=== PATIENT | male | born 1995 | race Hispanic/Latino ===

== ENCOUNTER 2019-02-25 01:38 | Inpatient (IN) | payer OTHER ==
[2019-02-25] VITALS (10 sets, daily range): BP systolic 107–124; BP diastolic 63–87
[~2019-02-25] VITALS: Ht 182.9 cm; Wt 111.1 kg
[2019-02-25] MEDS ORDERED: ONDANSETRON HCL INJ 2MG/ML 2ML 2 MG/ML VIAL IV STA (02:02)
[2019-02-25] MEDS ORDERED: SODIUM CHLORIDE 0.9% 1000ML 1,000 ML IV ONE (02:15)
[2019-02-25 02:32] LABS: BASOPHILS # (AUTO) 0.2 (0.0-0.1); EOSINOPHILS # (AUTO) 0.2 (0.0-0.4); EOSINOPHILS % 1.2 % (0.0-6.0); HEMOGLOBIN 12.1 g/dL (14.0-18.0); LYMPHOCYTES # (AUTO) 4.6 (1.0-3.2); LYMPHOCYTES % 24.5 % (18.0-39.1); MEAN CORPUSCULAR HEMOGLOBIN 29.2 pg (28-32); MEAN CORPUSCULAR HGB CONC 33.6 g/dL (31-35); MONOCYTES # (AUTO) 1.1 (0.2-0.8); MONOCYTES % 5.6 % (4.4-11.3); NEUTROPHILS # (AUTO) 12.5 (2.1-6.9); NEUTROPHILS % 66.5 % (38.7-80.0); PLATELET COUNT 281 x10e3/uL (140-360); RED BLOOD COUNT 4.14 x10e6/uL (4.3-5.7); RED CELL DISTRIBUTION WIDTH 12.5 % (11.7-14.4)
[2019-02-25 02:36] LABS: INR 0.97; PROTHROMBIN TIME 13.4 seconds (11.9-14.5)
[2019-02-25 02:37] LABS: PARTIAL THROMBOPLASTIN TIME 25.5 seconds (23.8-35.5)
[2019-02-25 02:44] LABS: ALANINE AMINOTRANSFERASE 42 IU/L (0-55); ALKALINE PHOSPHATASE 74 IU/L (40-150); ANION GAP 14.3 mmol/L (8-16); BLOOD UREA NITROGEN 38 mg/dL (7-26); BUN/CREATININE RATIO 41 (6-25); CALCIUM 9.1 mg/dL (8.4-10.2); CARBON DIOXIDE 26 mmol/L (22-29); CHLORIDE 102 mmol/L (98-107); CREATININE, SERUM 0.93 mg/dL (0.72-1.25); EST GLOMERULAR FILTRATION RATE > 60 ML/MIN (60-); GLUCOSE 154 mg/dL (74-118); POTASSIUM 4.3 mmol/L (3.5-5.1); SODIUM 138 mmol/L (136-145)
[2019-02-25 02:53] LABS: ALBUMIN 3.9 g/dL (3.5-5.0); ALBUMIN/GLOBULIN RATIO 1.5 (0.8-2.0)
[2019-02-25] MEDS ORDERED: PANTOPRAZOLE 40 MG 10ML VIAL IV STA (02:58)
--- NOTE | 2019-02-25 03:05 | Diagnostic Imaging Report ---
EXAMINATION: CHEST 2 VIEWS INDICATION: ^ABD PAIN ^[id number] ^0235 ^Y COMPARISON: None FINDINGS: PA and lateral views TUBES and LINES: None. LUNGS: Lungs are well inflated. Lungs are clear. There is no evidence of pneumonia or pulmonary edema. PLEURA: No pleural effusion or pneumothorax. HEART AND MEDIASTINUM: The cardiomediastinal silhouette is unremarkable. BONES AND SOFT TISSUES: No acute osseous lesion. Soft tissues are unremarkable. UPPER ABDOMEN: No free air under the diaphragm. IMPRESSION: No acute thoracic abnormality. Signed by: Dr. Smita Flores M.D. on 02/25/2019 3:02 AM
[2019-02-25] MEDS ORDERED: OCTREOTIDE ACETATE 0.05 MG/ML AMP IV STA (03:07)
[2019-02-25] MEDS ORDERED: SODIUM CHLORIDE 0.9% 250ML 250 ML ONE (03:15)
[2019-02-25] MEDS ORDERED: PANTOPRAZOL 40MG/SOD CHL 0.9% 50 ML IV ONE (03:15)
[2019-02-25] MEDS ORDERED: PANTOPRAZOLE INJ 80 MG in SODIUM CHLORIDE 0.9% 100 ML IV SCH (03:15)
[2019-02-25] MEDS ORDERED: OCTREOTIDE ACETATE 1 ML ONE (03:16)
--- OUTSIDE RECORDS SUMMARY | 2019-02-25 03:19 | XMS REPORT ---
Author Author [facility] Address Unknown Phone Unavailable Care Team Providers Care Leak Gang Supervisor Name Role Phone Mile ALFONSO Unavailable Unavailable Problems This patient has no known problems. Allergies, Adverse Reactions, Alerts This patient has no known allergies or adverse reactions. Medications This patient has no known medications. Results Test Description Test Time Test Comments Text Results Atomic Results Result Comments CHEST 2 VIEWS 2019-02-25 03:01:00 [place] [address] Patient Name: BRANDON LOMELI MR #: [id number] : 1995 Age/Sex: 23/M Req #: [id number] Adm Physician: Ordered by: HEVER ALFONSO MD Report #: [id number] Location: ER Room/Bed: Procedure: [id number] DX/CHEST 2 VIEWS Exam Date: 02/25/19 Exam Time: 0235 REPORT STATUS: Signed EXAMINATION: CHEST 2 VIEWS INDICATION: ABD PAIN [id number] Y COMPARISON: None FINDINGS: PA and lateral views TUBES and LINES: None. LUNGS: Lungs are well inflated. Lungs are clear. There is no evidence of pneumonia or pulmonary edema. PLEURA: No pleural effusion or pneumothorax. HEART AND MEDIASTINUM: The cardiomediastinal silhouette is unremarkable. BONES AND SOFT TISSUES: No acute osseous lesion. Soft tissues are unremarkable. UPPER ABDOMEN: No free air under the diaphragm. IMPRESSION: No acute thoracic abnormality. Signed by: Dr. Evy Flores M.D. on 02/25/2019 3:02 AM Dictated By: EVY FLORES MD 1 Transcribed By: DAVID on 02/25/19301 COPY TO: HEVER ALFONSO MD
[2019-02-25] MEDS ORDERED: OCTREOTIDE ACETATE 0.05 MG/ML AMP ONE (03:20)
[2019-02-25] MEDS ORDERED: PROMETHAZINE 12.5MG/ NACL 0.9% 50 ML ONE (03:25)
[2019-02-25] MEDS: PROMETHAZINE 12.5MG/ NACL 0.9% 12.5 MG/50 ML BAG IV PRN (03:28)
[2019-02-25] MEDS ORDERED: NO HOME MEDS (03:29)
[2019-02-25] MEDS: OCTREOTIDE ACETATE 500 MCG in SODIUM CHLORIDE 0.9% 250ML 250 ML IV SCH ×2 (03:30→13:46)
[2019-02-25] MEDS ORDERED: PANTOPRAZOLE 40 MG 10ML VIAL ONE (05:42)
[2019-02-25] MEDS ORDERED: SODIUM CHLORIDE 0.9% 50ML 50 ML ONE (05:47)
[2019-02-25] MEDS ORDERED: ALPRAZOLAM 0.5 MG TAB PO NR (09:30)
[2019-02-25] MEDS: PANTOPRAZOL 40MG/SOD CHL 0.9% 50 ML IV SCH ×3 (09:52→20:17)
[2019-02-25] MEDS: SODIUM CHLORIDE 0.9% 1000ML 1,000 ML IV SCH ×2 (11:10→20:17)
[2019-02-25 12:20] LABS: HEMATOCRIT 31.2 % (38.2-49.6); HEMOGLOBIN 10.8 g/dL (14.0-18.0)
--- NOTE | 2019-02-25 14:38 | History and Physical ---
CHIEF COMPLAINT: Hematemesis. Melena. Epigastric pain. HISTORY OF PRESENT ILLNESS: A 23-year-old male. For the past couple of weeks or so, the patient was having severe lower back pain. 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 The patient did take alternate of Advil and ibuprofen [id number] and apparently last night, the patient had a gross hematemesis with also melena for the past few days as well. His hemoglobin and hematocrit dropped down to 12.1 and 36. White cell count is 18.8, most likely leukemoid reaction. The patient is otherwise stable at this time. He is on octreotide and PPI drip. The patient is stable. PAST MEDICAL HISTORY: Recent back injury. SOCIAL HISTORY: The patient does not smoke or use alcohol. No recreational drugs. ALLERGIES: NO KNOWN ALLERGIES. HOME MEDICATIONS: [id number]-opkbkwk Tylenol. Ibuprofen, naproxen PHYSICAL EXAMINATION: VITAL SIGNS: Temperature is 97, blood pressure 107/63, pulse rate 93, respirations 20. GENERAL: The patient is not in acute distress. He is awake. HEENT: Normocephalic, atraumatic. Anicteric. NECK: Supple grossly. PULMONARY: Diminished breath sounds bilaterally. CARDIOVASCULAR: S1, S2. Regular rate and rhythm. ABDOMEN: Epigastric discomfort. No rebound or guarding. EXTREMITIES: No cyanosis or edema. NEUROLOGIC: No gross focal deficit. LABORATORY DATA: Sodium is 138, potassium 4.3, chloride 102, bicarb 26, BUN 38, creatinine 0.9, glucose 154. WBC is 18.8, hemoglobin 12.1, hematocrit 36, platelets 281. IMPRESSION: 1. Hematemesis. 2. Melena. 3. Fecal occult blood positive. 4. Recent lower back injury, lumbar strain. 5. Epigastric pain. 6. Anxious. PLAN: PPI and octreotide. Continue with pain control and avoid NSAID. We will give the patient Xanax as needed. The patient will need endoscopy done today. The patient will remain stable. IV fluid support. Pain control. MD LELAND Blair/MODRoque /[id number]
[2019-02-26] VITALS (8 sets, daily range): BP systolic 94–138; BP diastolic 53–68
[2019-02-26] MEDS: ALPRAZOLAM 0.5 MG TAB PO PRN ×2 (00:05→22:09)
[2019-02-26] MEDS: OCTREOTIDE ACETATE 500 MCG in SODIUM CHLORIDE 0.9% 250ML 250 ML IV SCH ×3 (01:52→19:18)
[2019-02-26] MEDS: PANTOPRAZOL 40MG/SOD CHL 0.9% 50 ML IV SCH ×4 (01:52→16:03)
--- NOTE | 2019-02-26 02:35 | Consultation ---
DATE OF CONSULTATION: 02/25/2019 HISTORY OF PRESENT ILLNESS: This is a 23-year-old gentleman, who presented to the hospital because of some abdominal pain, was mainly in the epigastric area along with nausea, vomiting with coffee-grounds emesis, and black tarry stool. He apparently has been taking some ibuprofen and NSAIDs for back pain. His hemoglobin on admission was 12.1, this has dropped to 10.8. PAST MEDICAL HISTORY: His past medical problem is otherwise only is recent back pain or back injury. ALLERGIES: NONE. SOCIAL HISTORY: Smokes occasionally. No alcohol use. FAMILY HISTORY: Noncontributory. MEDICATIONS: On admission including Tylenol, ibuprofen, as well as NSAIDs. REVIEW OF SYSTEMS: Denies any chest pain at this point. Denies any shortness of breath. Denies any dysphagia or odynophagia. Denies any dysuria, hematuria, or any kind of syncopal episodes. PHYSICAL EXAMINATION: GENERAL: The patient is awake, alert, appears to be stable and not in acute distress at this point. Vital signs: Afebrile currently with stable vital signs. HEAD, EYES, EARS, NOSE, AND THROAT: Normocephalic, atraumatic. Sclerae are anicteric. NECK: Supple. HEART: Regular. LUNGS: Clear. ABDOMEN: Soft. There is some tenderness in the epigastric area. There is no rebound or mass. EXTREMITIES: No cyanosis. No clubbing. LAB VALUES: Hemoglobin is 10.8, hematocrit of 31.2. BUN 38, creatinine 0.93. PT/INR is normal. IMPRESSION: Gastrointestinal bleed, likely secondary to peptic ulcer disease. RECOMMENDATION: Continue on a proton pump inhibitor at this point. We will proceed with EGD for evaluation tomorrow. The patient can have clear liquid diet for now and then n.p.o. after midnight. MD NOEL Jain/MODL /[id number] cc: Gamaliel Camarena MD
[2019-02-26 05:34] LABS: BASOPHILS # (AUTO) 0.1 (0.0-0.1); BASOPHILS % 0.7 % (0.0-1.0); EOSINOPHILS # (AUTO) 0.2 (0.0-0.4); HEMATOCRIT 24.4 % (38.2-49.6); HEMOGLOBIN 8.2 g/dL (14.0-18.0); LYMPHOCYTES # (AUTO) 3.7 (1.0-3.2); LYMPHOCYTES % 33.2 % (18.0-39.1); MEAN CORPUSCULAR HEMOGLOBIN 29.1 pg (28-32); MEAN CORPUSCULAR HGB CONC 33.6 g/dL (31-35); MEAN CORPUSCULAR VOLUME 86.5 fL (81-99); MONOCYTES # (AUTO) 0.6 (0.2-0.8); MONOCYTES % 5.3 % (4.4-11.3); NEUTROPHILS # (AUTO) 6.4 (2.1-6.9); NEUTROPHILS % 58.2 % (38.7-80.0); PLATELET COUNT 253 x10e3/uL (140-360); RED BLOOD COUNT 2.82 x10e6/uL (4.3-5.7); RED CELL DISTRIBUTION WIDTH 12.6 % (11.7-14.4)
[2019-02-26 06:09] LABS: BLOOD UREA NITROGEN 18 mg/dL (7-26); BUN/CREATININE RATIO 22 (6-25); CALCIUM 8.5 mg/dL (8.4-10.2); CARBON DIOXIDE 27 mmol/L (22-29); CHLORIDE 108 mmol/L (98-107); CREATININE, SERUM 0.83 mg/dL (0.72-1.25); EST GLOMERULAR FILTRATION RATE > 60 ML/MIN (60-); GLUCOSE 114 mg/dL (74-118); SODIUM 138 mmol/L (136-145)
[2019-02-26] MEDS: SODIUM CHLORIDE 0.9% 1000ML 1,000 ML IV SCH ×2 (06:28→19:18)
[2019-02-26] MEDS ORDERED: PANTOPRAZOLE 40 MG 10ML VIAL IV SCH (09:00)
[2019-02-26] MEDS ORDERED: IRON SUCROSE 100 MG in SODIUM CHLORIDE 0.9% 100 ML 100 ML IV SCH (11:00)
[2019-02-26] MEDS ORDERED: PROPOFOL IV EMULSION 10 MG/ML 50 ML VIAL ONE (18:04)
[2019-02-26] MEDS ORDERED: LIDOCAINE HCL 2% LOCAL INJ 5 ML SDV VIAL INJ ONE (18:04)
[2019-02-26] MEDS ORDERED: MIDAZOLAM HCL 2 MG/2 ML VIAL ONE (19:03)
[2019-02-26] MEDS ORDERED: FENTANYL CITRATE/PF 100MCG/2 ML INJ ONE (19:03)
[2019-02-26] MEDS: PROMETHAZINE 12.5MG/ NACL 0.9% 12.5 MG/50 ML BAG IV PRN (19:04)
[2019-02-26] MEDS: SUCRALFATE 1 GM TAB PO SCH (19:20)
[2019-02-27] VITALS (7 sets, daily range): BP systolic 90–121; BP diastolic 50–77
[2019-02-27] MEDS: OCTREOTIDE ACETATE 500 MCG in SODIUM CHLORIDE 0.9% 250ML 250 ML IV SCH (04:59)
[2019-02-27 05:26] LABS: BASOPHILS # (AUTO) 0.1 (0.0-0.1); BASOPHILS % 0.6 % (0.0-1.0); EOSINOPHILS # (AUTO) 0.3 (0.0-0.4); EOSINOPHILS % 3.1 % (0.0-6.0); HEMATOCRIT 24.7 % (38.2-49.6); HEMOGLOBIN 8.1 g/dL (14.0-18.0); LYMPHOCYTES # (AUTO) 2.7 (1.0-3.2); LYMPHOCYTES % 25.8 % (18.0-39.1); MEAN CORPUSCULAR HEMOGLOBIN 29.1 pg (28-32); MEAN CORPUSCULAR HGB CONC 32.8 g/dL (31-35); MEAN CORPUSCULAR VOLUME 88.8 fL (81-99); MONOCYTES # (AUTO) 0.5 (0.2-0.8); MONOCYTES % 5.2 % (4.4-11.3); NEUTROPHILS # (AUTO) 6.7 (2.1-6.9); NEUTROPHILS % 64.6 % (38.7-80.0); PLATELET COUNT 267 x10e3/uL (140-360); RED BLOOD COUNT 2.78 x10e6/uL (4.3-5.7); RED CELL DISTRIBUTION WIDTH 12.6 % (11.7-14.4)
[2019-02-27 05:42] LABS: ANION GAP 9.6 mmol/L (8-16); BLOOD UREA NITROGEN 10 mg/dL (7-26); BUN/CREATININE RATIO 12 (6-25); CALCIUM 8.9 mg/dL (8.4-10.2); CARBON DIOXIDE 26 mmol/L (22-29); CHLORIDE 104 mmol/L (98-107); CREATININE, SERUM 0.81 mg/dL (0.72-1.25); EST GLOMERULAR FILTRATION RATE > 60 ML/MIN (60-); GLUCOSE 106 mg/dL (74-118); POTASSIUM 3.6 mmol/L (3.5-5.1); SODIUM 136 mmol/L (136-145)
[2019-02-27] MEDS: SODIUM CHLORIDE 0.9% 1000ML 1,000 ML IV SCH ×2 (06:38→19:35)
[2019-02-27] MEDS ORDERED: PANTOPRAZOLE SOD 40 MG TABEC PO SCH (07:30)
[2019-02-27] MEDS: SUCRALFATE 1 GM TAB PO SCH ×4 (07:35→21:34)
[2019-02-27] MEDS: PANTOPRAZOLE 40 MG 10ML VIAL IV SCH ×2 (09:40→16:40)
[2019-02-27] MEDS: IRON SUCROSE 100 MG in SODIUM CHLORIDE 0.9% 100 ML 100 ML IV SCH (09:45)
--- NOTE | 2019-02-27 18:45 | Diagnostic Imaging Report ---
Examination: MRI SPINE LUMBAR WITHOUT CONTRAST History: Low back pain radiating into left lower extremity. Comparison studies: None Technique: Sagittal, coronal and axial T2 , sagittal T1 and STIR; axial spin density oblique. Findings: Number of lumbar vertebral bodies: Five. Alignment: Normal lordosis. No scoliosis. Soft tissues: No T2 hyperintense inflammatory changes. Posterior paraspinal soft tissues and muscles: No abnormality. Lower thoracic cord: Normal in signal and morphology. The tip of the conus is at L1-L2. Cauda equina: No masses. No arachnoiditis. Vertebrae: No fractures, infection or neoplasm. Degenerative changes: L1-L2 through L4-L5: No abnormalities. L5-S1: Asymmetric to the left disc bulge results in moderate left neural foraminal narrowing with contact of the exiting left L5 nerve root. No right foraminal or canal stenosis. Left central annular fissure. IMPRESSION: 1. Degenerative changes at L5-S1 with moderate left foraminal narrowing and contact of the exiting left L5 nerve root. 2. Left central annular fissure. 3. No canal stenosis. Signed by: Dr. Lauren De La Fuente M.D. on 02/27/2019 6:42 PM
[2019-02-28 00:44] VITALS: BP 95/59
[2019-02-28 04:00] VITALS: BP 115/64
[2019-02-28 06:20] LABS: BASOPHILS # (AUTO) 0.1 (0.0-0.1); BASOPHILS % 0.6 % (0.0-1.0); EOSINOPHILS # (AUTO) 0.3 (0.0-0.4); EOSINOPHILS % 2.8 % (0.0-6.0); HEMOGLOBIN 8.2 g/dL (14.0-18.0); LYMPHOCYTES # (AUTO) 2.3 (1.0-3.2); LYMPHOCYTES % 24.6 % (18.0-39.1); MEAN CORPUSCULAR HGB CONC 32.8 g/dL (31-35); MEAN CORPUSCULAR VOLUME 88.3 fL (81-99); MONOCYTES # (AUTO) 0.6 (0.2-0.8); MONOCYTES % 6.3 % (4.4-11.3); NEUTROPHILS # (AUTO) 6.1 (2.1-6.9); PLATELET COUNT 292 x10e3/uL (140-360); RED BLOOD COUNT 2.83 x10e6/uL (4.3-5.7); RED CELL DISTRIBUTION WIDTH 12.7 % (11.7-14.4)
[2019-02-28 06:37] LABS: ANION GAP 10.5 mmol/L (8-16); BLOOD UREA NITROGEN 10 mg/dL (7-26); BUN/CREATININE RATIO 12 (6-25); CALCIUM 8.8 mg/dL (8.4-10.2); CARBON DIOXIDE 26 mmol/L (22-29); CHLORIDE 107 mmol/L (98-107); CREATININE, SERUM 0.86 mg/dL (0.72-1.25); EST GLOMERULAR FILTRATION RATE > 60 ML/MIN (60-); GLUCOSE 91 mg/dL (74-118); POTASSIUM 3.5 mmol/L (3.5-5.1); SODIUM 140 mmol/L (136-145)
[2019-02-28 07:52] VITALS: BP 120/66
[2019-02-28] MEDS: PANTOPRAZOLE 40 MG 10ML VIAL IV SCH (08:14)
[2019-02-28] MEDS: SUCRALFATE 1 GM TAB PO SCH (08:14)
[2019-02-28 08:15] VITALS: BP 120/66
[2019-02-28] MEDS: SODIUM CHLORIDE 0.9% 1000ML 1,000 ML IV SCH (09:18)
[2019-02-28] MEDS: IRON SUCROSE 100 MG in SODIUM CHLORIDE 0.9% 100 ML 100 ML IV SCH (09:22)
[2019-02-28] MEDS ORDERED: TYLENOL WITH C1 EACH PO (09:23)
[2019-02-28] MEDS ORDERED: HEMOCYTE PLUS1 EACH PO (09:24)
[2019-02-28] MEDS ORDERED: PANTOPRAZOLE SO40 MG PO (09:24)
[2019-02-28] MEDS ORDERED: SUCRALFATE1 GM PO (09:24)
[2019-02-28] MEDS ORDERED: SENNOSIDES8.6 MG PO (09:24)
--- NOTE | 2019-03-01 07:15 | Discharge Summary ---
PRIMARY CARE PHYSICIAN: Gamaliel Camarena MD COUNTRY PRINTER: Fabrizio Koo MD FINAL DIAGNOSES: 1. Acute blood loss anemia with acute upper gastrointestinal bleed with acute gastric ulcer with bleed secondary to NSAIDs usage for acute lower back pain. 2. Acute blood loss anemia. Hemoglobin is 8.1. 3. Acute lower back pain with nerve impingement with left foraminal narrowing at the L5-S1. 4. Iron infusion. 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 Multiple treatment was given including chiropractic treatment along with pain medication, was taken [id number] NSAID and subsequently had an acute hematemesis with melena, came into the hospital. His hemoglobin was 12.1 and 36 on admission, but after settling down, the patient's hemoglobin subsequently noted to be 8.1 and 24.7. Of note, the patient had received iron infusion. The patient underwent endoscopy done by Dr. Fabrizio Koo, it is time to have hiatal hernia, acute gastric ulcer, but normal small bowel examination. The patient is stable. A biopsy was done. He no longer bleed. His hemoglobin and hematocrit now are 8.2 and 25. The patient has received 2 doses of Venofer iron infusion and he will get the 3rd one today prior to discharge. He will continue with PPI. Carafate suspension is initiated and the patient is stable. MRI as mentioned above. The patient will go home today. Medications include as follows: Tylenol No. 3 one q.6 p.r.n. for pain, senna S 1 tab b.i.d., Carafate suspension 1 g a.c. and at bedtime, 30-day with two refills, hemocyte Plus one tab b.i.d. for one month. Protonix 40 mg twice a day for 2 months total. The patient is stable, discharged home, follow up on . The patient will not return to work now until cleared. We will repeat his lab work when returning to clinic. Gamaliel Camarena MD JT/MODL /[id number]
== END 2019-02-28 10:46 | disposition home or self-care (01) | DRG 378 ==
LOC: ER 01:47 → ERHOLD 03:17 → IMCU 03:49 → OBSVTOIN 09:10 → MED/SURG 02-27 18:56
PROVIDERS: ADMIT Internal Medicine; ATTEND Internal Medicine
PROC: 0DB78ZX Excision of Stomach, Pylorus, Via Natural or Artificial Opening Endoscopic, Diagnostic (ICD-10-PCS; 2019-02-26)
PROC: 0DB58ZX Excision of Esophagus, Via Natural or Artificial Opening Endoscopic, Diagnostic (ICD-10-PCS; principal; 2019-02-26 18:09)
DX: K25.0 Acute gastric ulcer with hemorrhage (principal); D62 Acute posthemorrhagic anemia; Z79.1 Long term (current) use of non-steroidal anti-inflammatories (NSAID); M48.07 Spinal stenosis, lumbosacral region; K44.9 Diaphragmatic hernia without obstruction or gangrene; F41.9 Anxiety disorder, unspecified
CPT/HCPCS: 36415; 43239; 71046; 72148; 80048; 80053; 82270; 85014; 85018; 85025; 85610; 85730; 86850; 86900; 88305; 88312; 96365; 96374; 99284; J1756; J2001; J2250; J2353; J2354; J2405; J2550; J7030; J7050